=== PATIENT | female | born 1940 | race Caucasian/White ===

== ENCOUNTER → 2016-07-08 | Outpatient (CLI) | payer MEDICARE, OTHER | END | disposition home or self-care (01) | LOC: CFH 10:04 | PROVIDERS: ATTEND Family Medicine | DX: Z12.31 Encounter for screening mammogram for malignant neoplasm of breast (principal) | CPT/HCPCS: G0202 ==

== ENCOUNTER → 2016-07-17 | Outpatient (CLI) | payer MEDICARE, OTHER | END | disposition home or self-care (01) | LOC: CFH 13:01 | PROVIDERS: ATTEND Family Medicine | DX: N64.89 Other specified disorders of breast (principal) | CPT/HCPCS: 76641; G0206 ==

== ENCOUNTER → 2016-07-28 | Outpatient (CLI) | payer MEDICARE, OTHER | END | disposition home or self-care (01) | LOC: CFH 11:02 | PROVIDERS: ATTEND Internal Medicine Gastroenterology | DX: Z12.11 Encounter for screening for malignant neoplasm of colon (principal); K22.5 Diverticulum of esophagus, acquired; K22.4 Dyskinesia of esophagus; K22.2 Esophageal obstruction; I10 Essential (primary) hypertension | CPT/HCPCS: 74220 ==

== ENCOUNTER → 2017-03-29 | Outpatient (CLI) | payer MEDICARE, OTHER ==
[~2017-03-29] MED LIST: BIEST PO; C-PROGESTERONE TP; C-TESTOSTERONE TP; CALC400T40 PO; CHOL400T10 PO; DILT120T3 PO; FAMVIR PO; FEXO180T72 PO; LACT1CAP43 PO; LISI5TAB7 PO; METH1TAB21 PO; PANT40TA3 PO; TOLT2TAB16 PO
[2017-03-29 11:32] LABS: ALANINE AMINOTRANSFERASE 30 U/L (12-78); ALBUMIN 3.8 g/dL (3.4-5.0); ANION GAP 4 mmol/L (5-15); CALCIUM 8.5 mg/dL (8.5-10.1); CHLORIDE 103 mmol/L (98-107); CREATININE 0.59 mg/dL (0.55-1.02)
[2017-03-29 11:34] LABS: ALKALINE PHOSPHATASE 62 U/L (45-117); BILIRUBIN,TOTAL 0.2 mg/dL (0.2-1.0); TOTAL PROTEIN 7.4 g/dL (6.4-8.2)
== END | disposition home or self-care (01) ==
LOC: STAR 10:00
PROVIDERS: ATTEND Thoracic Surgery (Cardiothoracic Vascular Surgery)
DX: Z01.818 Encounter for other preprocedural examination (principal)
CPT/HCPCS: 36415; 80053; 93005

== ENCOUNTER 2017-04-14 07:17 | Day surgery (SDC) | payer MEDICARE, OTHER ==
[~2017-04-14] VITALS: Ht 158.8 cm; Wt 49.3 kg
[~2017-04-14 07:17] MED LIST changes: +BUPIVACAINE/PF 0.5% ONE
[2017-04-14] MEDS ORDERED: LACTATED RINGERS 1,000 ML IV SCH ×2 (07:51→10:04)
[2017-04-14 08:13] VITALS: BP 164/70
[2017-04-14] MEDS ORDERED: AMOX1TAB61 PO (08:17)
[2017-04-14] MEDS ORDERED: CLINDAMYCIN PMX 600MG/50ML 50 ML IV ONE (09:16)
[2017-04-14] MEDS ORDERED: DEXAMETHASONE 4 MG/ML, 1ML ONE ×2 (09:34)
[2017-04-14] MEDS ORDERED: PROPOFOL 10 MG/ML, 20ML ONE (09:34)
[2017-04-14] MEDS ORDERED: ONDANSETRON 2MG/ML, 2ML ONE (09:34)
[2017-04-14] MEDS ORDERED: LIDOCAINE-MPF 2% ,5ML ONE (09:34)
[2017-04-14] MEDS ORDERED: FENTANYL PF 100 MCG/2ML ONE ×2 (09:37→10:29)
[2017-04-14] MEDS ORDERED: EPINEPHRINE 1 MG/ML, 1ML INFIL ONE (09:42)
[2017-04-14] MEDS ORDERED: HYDROcodone/APAP 7.5-325MG/15ML UDC PO PRN (10:00)
[2017-04-14] MEDS ORDERED: morphine SULFATE 10 MG/ML, 1ML IV PRN (10:00)
[2017-04-14] MEDS ORDERED: ACETAMINOPHEN 325 MG TABLET PO PRN (10:00)
[2017-04-14] MEDS ORDERED: ONDANSETRON 2MG/ML, 2ML IVPush PRN ×2 (10:00→10:30)
[2017-04-14] MEDS ORDERED: MEPERIDINE/PF 25MG/0.5ML IVPush PRN (10:00)
[2017-04-14] MEDS: OXYcodone 5 MG/5 ML ORAL.SOL UDC PO PRN ×2 (10:20→11:07)
[2017-04-14] MEDS ORDERED: OXYcodone 5 MG/5 ML ORAL.SOL UDC ONE ×2 (10:29→11:06)
[2017-04-14] MEDS ORDERED: morphine SULFATE 10 MG/ML, 1ML IVPush PRN (10:30)
[2017-04-14] MEDS ORDERED: HYDROcodone/APAP 5/325 TABLET PO PRN (10:30)
[2017-04-14] MEDS ORDERED: KETOROLAC 30 MG/1 ML IVPush PRN (10:30)
[2017-04-14] MEDS: FENTANYL PF 100 MCG/2ML IV PRN ×2 (10:32→10:43)
[2017-04-14] MEDS ORDERED: ISOSULFAN BLUE 10 MG/ML, 5ML IV ONE (10:52)
== END 2017-04-14 13:00 | disposition home or self-care (01) ==
LOC: OUT 07:17
PROVIDERS: ATTEND Thoracic Surgery (Cardiothoracic Vascular Surgery)
DX: K40.90 Unilateral inguinal hernia, without obstruction or gangrene, not specified as recurrent (principal); E11.9 Type 2 diabetes mellitus without complications
CPT/HCPCS: 49505; C1781; J0171; J1100; J2405; J2704; J3010; J3490; J7120

== ENCOUNTER → 2017-07-12 | Outpatient (CLI) | payer MEDICARE, OTHER ==
[~2017-07-12] MED LIST changes: +AMOX1TAB61 PO; -BUPIVACAINE/PF 0.5% ONE
== END | disposition home or self-care (01) ==
LOC: CFH 09:43
PROVIDERS: ATTEND Family Medicine
DX: Z12.31 Encounter for screening mammogram for malignant neoplasm of breast (principal)
CPT/HCPCS: 77063; 77067

== ENCOUNTER → 2019-09-26 | Outpatient (CLI) | payer MEDICARE, OTHER | END | disposition home or self-care (01) | LOC: CFH 10:37 | PROVIDERS: ATTEND Family Medicine | DX: Z12.31 Encounter for screening mammogram for malignant neoplasm of breast (principal) | CPT/HCPCS: 77063; 77067 ==

== ENCOUNTER 2019-10-17 13:10 | Outpatient (CLI) | payer MEDICARE, OTHER | END 2019-10-17 23:59 | disposition home or self-care (01) | LOC: CFH 13:10 | PROVIDERS: ATTEND Family Medicine | DX: R92.8 Other abnormal and inconclusive findings on diagnostic imaging of breast (principal) | CPT/HCPCS: 76642; 77065 ==

== ENCOUNTER → 2020-10-21 | Outpatient (CLI) | payer MEDICARE, OTHER | END | disposition home or self-care (01) | LOC: CFH 12:28 | PROVIDERS: ATTEND Family Medicine | DX: Z12.31 Encounter for screening mammogram for malignant neoplasm of breast (principal) | CPT/HCPCS: 77063; 77067 ==